=== PATIENT | female | born 1970 | race Caucasian/White ===

== ENCOUNTER 2016-06-11 10:06 | Outpatient (CLI) | payer BC | END 2016-06-11 10:07 | disposition home or self-care (01) | DX: Z12.31 Encounter for screening mammogram for malignant neoplasm of breast (principal) ==

== ENCOUNTER 2018-06-21 13:33 | Outpatient (CLI) | payer BC ==
--- NOTE | 2018-06-22 08:54 | Mammography Report ---
Reason: SCREENING MAMMO Procedure Date: 06/21/2018 Accession Number: [id number] / [id number] Procedure: MGN - Screening Mammo Dig Bilat CPT Code: FULL RESULT: EXAM: Screening Mammo Dig Bilat DATE: 06/21/2018 1:54 PM CLINICAL HISTORY: Screening encounter. No reported risk factors. History of benign left breast skin biopsy. TECHNIQUE: Bilateral CC, laterally exaggerated CC, MLO views were obtained. COMPARISON: 06/11/2016 and 09/29/2014. FINDINGS: The breasts demonstrate scattered fibroglandular densities bilaterally. No suspicious masses, clustered microcalcifications, or regions of architectural distortion are identified. IMPRESSION: Negative examination RECOMMENDATION: Routine annual screening unless otherwise clinically indicated. BIRADS CATEGORY 1: Negative STANDARD QUALIFYING STATEMENTS: 1. This examination was reviewed with the aid of Computer-Aided Detection (CAD). 2. A negative or benign imaging report should not preclude biopsy if clinically suspicious findings are present. 3. Dense breasts may obscure an underlying neoplasm. 4. This examination was reviewed without the aid of 3D breast imaging (tomosynthesis).
== END 2018-06-21 13:34 | disposition home or self-care (01) ==
LOC: DI.N 13:33
DX: Z12.31 Encounter for screening mammogram for malignant neoplasm of breast (principal)
CPT/HCPCS: 77067

== ENCOUNTER 2020-02-24 14:20 | Outpatient (CLI) | payer BC | END 2020-02-24 14:21 | disposition home or self-care (01) | LOC: COV 14:20 | PROVIDERS: ATTEND Family Medicine | DX: Z20.828 Contact with and (suspected) exposure to other viral communicable diseases (principal) ==

== ENCOUNTER 2020-03-16 08:28 | Outpatient (CLI) | payer BC ==
--- NOTE | 2020-03-19 16:11 | Mammography Report ---
BILATERAL DIGITAL SCREENING MAMMOGRAM 3D/2D: 03/16/2020 CLINICAL: Routine screening. Comparison is made to exams dated: 06/21/2018 mammogram, 06/11/2016 mammogram, 09/29/2014 mammogram, 07/31 mammogram, 02/19/2011 ultrasound, and 02/19/2011 mammogram - [facility]. Ther e are scattered fibroglandular elements in both breasts. There is possible architectural distortion in the right breast central to the nipple middle depth. No other significant masses, calcifications, or other findings are seen in either breast. IMPRESSION: INCOMPLETE: NEEDS ADDITIONAL IMAGING EVALUATION The possible architectural distortion in the right breast is indeterminate. Additional views with po ssible ultrasound are recommended. This exam was interpreted at Station ID: [id number]. NOTE: For mammograms, a report in lay terms will be sent to the patient. Approximately 15% of breast malignancies will not be visualized mammographically. In the management of a palpable breast mass, a negative mammogram must not discourage biopsy of a clinically suspicious lesion. Electronically Signed By: Nay st/yudith:03/16/2020 10:17:11 ACR BI-RADS Category 0: Incomplete 3340F PARENCHYMAL PATTERN: (A) - The breast(s) demonstrate(s) scattered fibroglandular densities. BI-RADS CATEGORY: (0) - 0 Mammo and [place] [id number] Immediate follow-up LATERALITY: (B)
== END 2020-03-16 08:29 | disposition home or self-care (01) ==
LOC: DI.N 08:28
PROVIDERS: ATTEND Physician Assistant Medical
DX: Z12.31 Encounter for screening mammogram for malignant neoplasm of breast (principal); R92.8 Other abnormal and inconclusive findings on diagnostic imaging of breast
CPT/HCPCS: 77063; 77067

== ENCOUNTER 2020-04-19 10:08 | Outpatient (CLI) | payer BC ==
--- NOTE | 2020-04-20 13:52 | Mammography Report ---
UNILATERAL RIGHT DIGITAL DIAGNOSTIC MAMMOGRAM 3D/2D: 04/19/2020 CLINICAL: Patient returns today to evaluate an architectural distortion in the right breast. Comparison is made to exams dated: 03/16/2020 mammogram, 06/21/2018 mammogram, and 06/11/2016 mammogra m - [facility]. There are scattered fibroglandular elements in right breast. There is irregular architectural distortion in the right breast at 9 o'clock middle depth. This is s een in additional views. No other significant masses or calcifications are seen in the breast. IMPRESSION: INCOMPLETE: NEEDS ADDITIONAL IMAGING EVALUATION The irregular architectural distortion in the right breast is indeterminate. An ultrasound is recomm ended. This exam was interpreted at Station ID: [id number]. NOTE: For mammograms, a report in lay terms will be sent to the patient. Approximately 15% of breast malignancies will not be visualized mammographically. In the management of a palpable breast mass, a negative mammogram must not discourage biopsy of a clinically suspicious lesion. SUMMARY: Targeted ultrasound is recommended for further evaluation and will be scheduled immediately following this exam. Electronically Signed By: Klever haley/yudith:04/19/2020 11:53:27 ACR BI-RADS Category 0: Incomplete 3340F PARENCHYMAL PATTERN: (A) - The breast(s) demonstrate(s) scattered fibroglandular densities. BI-RADS CATEGORY: (0) - 0 Ultrasound [id number] Immediate follow-up LATERALITY: (R)
--- NOTE | 2020-04-20 13:53 | Ultrasound Report ---
LIMITED ULTRASOUND OF RIGHT BREAST: 04/19/2020 CLINICAL: Patient returns today to evaluate a focal asymmetry in the RIGHT breast. Patient returns fo r additional imaging over a suspected mass in the right breast. Comparison is made to exams dated: 04/19/2020 mammogram, 03/16/2020 mammogram, 06/21/2018 mammogram, and 06/11/2016 mammogram - . Ultrasound of the right breast 9 o'clock region was performed. There is a 2.1 cm x 1.8 cm x 0.6 cm irregular mass with a spiculated margin in the right breast at 9 o'clock middle depth 5 cm from the nipple. This irregular mass is hyperechoic with posterior acousti c shadowing. This correlates with mammography findings. Color flow imaging demonstrates that there is no increase in vascularity. There also is a benign lymph node in the right breast at 9 o'clock posterior depth 7 cm from the nipp le. This lymph node displays fatty hilum. This correlates as an incidental finding. IMPRESSION: SUSPICIOUS OF MALIGNANCY The 2.1 cm x 1.8 cm x 0.6 cm irregular mass in the right breast at 9 o'clock middle depth is at a mod erate suspicion for malignancy. An ultrasound guided biopsy is recommended. The findings and recomm endations were discussed with the patient by the onsite radiologist, Dr. Barnett, at the time of the exam. After the biopsy, the clip placement will be compared with the area of architectural distortion on m ammography to ensure that the sonographic area corresponds with mammographic findings. If the clip lo cation is discordant, a stereotactic biopsy may be necessary. The lymph node in the right breast at 9 o'clock posterior depth is benign. This exam was interpreted at Station ID: [id number]. Electronically Signed By: Klever haley/yudith:04/19/2020 12:22:37 Ultrasound BI-RADS: 4b Moderate suspicion of malignancy BI-RADS CATEGORY: (4b) - Mod Susp None [id number] Immediate follow-up LATERALITY: ()
== END 2020-04-19 10:09 | disposition home or self-care (01) ==
LOC: DI 10:08
PROVIDERS: ATTEND Physician Assistant Medical
DX: N63.15 Unspecified lump in the right breast, overlapping quadrants (principal)
CPT/HCPCS: 76642

== ENCOUNTER 2020-04-25 08:00 | Outpatient (CLI) | payer BC ==
[2020-04-30] MEDS ORDERED: BUFFERED LIDOCAINE 10 ML SYRINGE ONE (10:35)
== END 2020-04-25 23:59 | disposition home or self-care (01) ==
LOC: LAB.WCP 08:00 → DI 04-30 12:15
PROVIDERS: ATTEND Physician Assistant Medical
DX: Z53.9 Procedure and treatment not carried out, unspecified reason (principal)

== ENCOUNTER 2020-04-30 13:17 | Outpatient (CLI) | payer BC ==
[2020-04-30] MEDS ORDERED: BUFFERED LIDOCAINE 10 ML SYRINGE IU ONE (14:24)
--- NOTE | 2020-05-07 09:41 | Ultrasound Report ---
ULTRASOUND GUIDED BIOPSY RIGHT BREAST USING VACUUM DEVICE WITH MARKING DEVICE INSERTED AND POST MAMMO GRAPHIC IMAGIN04/30/2020 CLINICAL: Right breast mass. PATIENT CONSENT: Risks (minor bleeding, infection, vasovagal reaction and repeat procedure), benefits and alternatives were explained to the patient and written informed consent was obtained. Correlation is made to exams dated: 04/19/2020 ultrasound, 04/19/2020 mammogram, 03/16/2020 mammogra m, 06/21/2018 mammogram, 06/11/2016 mammogram, and 09/29/2014 mammogram - [facility]. An ultrasound guided biopsy using real-time ultrasound was performed for the indistinct irregular sha ped mass located in the right breast at 9 o'clock. This was described on the previous mammography an d ultrasound reports. The skin was prepped in the usual manner. Topical and local anesthetic was ad ministered to the access site. A skin jennifer was made in the breast. The abnormality was approached f rom the lateral aspect. A biopsy needle was placed adjacent to the abnormality under ultrasound guid ance. Once the needle was documented to be in the correct location, a specimen was obtained using th e Mammotome biopsy system. A titanium clip was inserted into the biopsy cavity. A skin adhesive and a sterile dressing were applied to the access site. Post procedure mammographic imaging was obtaine d. The specimen was sent to the laboratory for pathological analysis. IMPRESSION: ULTRASOUND GUIDED BIOPSY BENIGN Ultrasound guided biopsy of the mass in the right breast at 9 o'clock. Pathologic findings of stroma l fibrosis are concordant with imaging. Recommend 6month f/u US and mammogram. This exam was interpreted at Station ID: [id number]. Elaine Linton [facility],acr/:05/04/2020 16:17:56 BI-RADS CATEGORY: () - Mammo and [place] [id number] 6 month follow-up LATERALITY: (R)
--- NOTE | 2020-05-07 09:41 | Mammography Report ---
UNILATERAL RIGHT DIGITAL DIAGNOSTIC MAMMOGRAM 3D/2D: 04/30/2020 CLINICAL: Post right breast ultrasound biopsy, clip placement imaging. Comparison is made to exam dated: 04/19/2020 ultrasound - [facility]. There are s cattered fibroglandular elements in right breast. There is a marker clip in the appropriate position in the right breast 9 o'clock. This marker clip p lacement is at the biopsy site. This correlates with ultrasound findings. IMPRESSION: POST PROCEDURE MAMMOGRAM FOR MARKER PLACEMENT There was a successful marker clip placement in the right breast 9 o'clock, at biopsy site. This exam was interpreted at Station ID: [id number]. NOTE: For mammograms, a report in lay terms will be sent to the patient. Approximately 15% of breast malignancies will not be visualized mammographically. In the management of a palpable breast mass, a negative mammogram must not discourage biopsy of a clinically suspicious lesion. Electronically Signed By: Elaine Goldstein M.D. [facility]/:05/04/2020 10:10:01 ACR BI-RADS Category Post-procedure mammogram for marker placement PARENCHYMAL PATTERN: (A) - The breast(s) demonstrate(s) scattered fibroglandular densities. BI-RADS CATEGORY: () - Unspecified - other recall n/a LATERALITY: (B)
== END 2020-04-30 13:18 | disposition home or self-care (01) ==
LOC: DI 13:17
PROVIDERS: ATTEND Physician Assistant Medical
DX: N60.31 Fibrosclerosis of right breast (principal)
CPT/HCPCS: 19083; 88305

== ENCOUNTER 2021-04-19 10:04 | Outpatient (CLI) | payer BC ==
--- NOTE | 2021-04-22 15:22 | Ultrasound Report ---
LIMITED ULTRASOUND OF RIGHT BREAST: 04/19/2021 CLINICAL: Short term follow up of the right breast. Comparison is made to exams dated: 04/30/2020 ultrasound biopsy, 04/19/2020 ultrasound, 04/19/2021 m ammogram, 04/19/2020 mammogram, 03/16/2020 mammogram, and 06/21/2018 mammogram - [facility]. Ultrasound of the right breast 9 o'clock region was performed. Gallagher scale images of the real-time ex amination were reviewed. There is a benign 1.3 cm x 1.4 cm x 0.5 cm irregular mass in the right breast at 9 o'clock middle dep th 5 cm from the nipple. This irregular mass is hyperechoic. This abnormality is decreased in size and correlates with mammography findings and the previous biopsy. There is an associated biopsy clip . IMPRESSION: BENIGN There is no sonographic evidence of malignancy. The 1.3 cm x 1.4 cm x 0.5 cm irregular mass in the right breast is benign. A 1 year screening mammogram is recommended. This exam was interpreted at Station ID: [id number]. Electronically Signed By: Klever haley/yudith:04/19/2021 11:52:06 Ultrasound BI-RADS: 2 Benign BI-RADS CATEGORY: (2) - 2 RECOMMENDATION: (ANNUAL) - Recommend routine annual screening mammography. [id number] 1 year screening LATERALITY: (B)
--- NOTE | 2021-04-22 15:22 | Mammography Report ---
BILATERAL DIGITAL DIAGNOSTIC MAMMOGRAM 3D/2D: 04/19/2021 CLINICAL: Patient returns for a 6 month follow up of the right breast, due for bilateral exam. Comparison is made to exams dated: 04/30/2020 ultrasound biopsy, 04/30/2020 mammogram, 04/19/2020 ul trasound, 04/19/2020 mammogram, 03/16/2020 mammogram, and 06/21/2018 mammogram - [facility]. There are scattered fibroglandular elements in both breasts. There is irregular architectural distortion in the right breast at 9 o'clock middle depth. This is d ecreased in size and correlates with the biopsy. There is a biopsy clip associated with the architec tural distortion. No other significant masses, calcifications, or other findings are seen in either breast. IMPRESSION: INCOMPLETE: NEEDS ADDITIONAL IMAGING EVALUATION The irregular architectural distortion in the right breast is indeterminate. An ultrasound is recomm ended. This exam was interpreted at Station ID: [id number]. NOTE: For mammograms, a report in lay terms will be sent to the patient. Approximately 15% of breast malignancies will not be visualized mammographically. In the management of a palpable breast mass, a negative mammogram must not discourage biopsy of a clinically suspicious lesion. Electronically Signed By: Klever haley/yudith:04/19/2021 11:48:53 ACR BI-RADS Category 0: Incomplete 3340F PARENCHYMAL PATTERN: (A) - The breast(s) demonstrate(s) scattered fibroglandular densities. BI-RADS CATEGORY: (0) - 0 Ultrasound [id number] Immediate follow-up LATERALITY: (R)
== END 2021-04-19 10:05 | disposition home or self-care (01) ==
LOC: DI 10:04
PROVIDERS: ATTEND Physician Assistant Medical
DX: R92.8 Other abnormal and inconclusive findings on diagnostic imaging of breast (principal)

== ENCOUNTER 2021-04-22 08:01 | Outpatient (CLI) | payer BC ==
--- NOTE | 2021-04-22 09:13 | XRAY Report ---
PROCEDURE: Ankle 2 View RT INDICATIONS: R ANKLE PX TECHNIQUE: 2 views of the ankle were acquired. COMPARISON: None FINDINGS: Bones: An avulsion fracture of the medial malleolar tip demonstrates approximately 2 mm displacement. The Ankle mortise is normally aligned. No suspicious bony lesions. Soft tissues: Soft tissue swelling over the medial malleolus. Achilles tendon appears normal. IMPRESSION: Avulsion fracture of the medial malleolar tip with 2 mm displacement. Reviewed by: Arsalan Linton on 04/22/2021 9:11 AM [facility] Approved by: Arsalan Linton on 04/22/2021 9:11 AM [facility] Station ID: [id number]
== END 2021-04-22 23:59 ==
LOC: DI.N 08:01
PROVIDERS: ATTEND Nurse Practitioner
DX: S82.51XA Displaced fracture of medial malleolus of right tibia, initial encounter for closed fracture (principal)

== ENCOUNTER 2021-05-21 13:00 | Outpatient (CLI) | payer BC ==
--- NOTE | 2021-05-21 15:40 | XRAY Report ---
PROCEDURE: Foot 3 View RT INDICATIONS: R ANKLE PX TECHNIQUE: AP weightbearing view of both feet. 2, weightbearing views of the right foot were acquire d. COMPARISON: None. FINDINGS: BONES: No acute, displaced fracture or dislocation. Right: Hallux valgus deformity with osteophytosis and joint space loss. Plantar calcaneal enthesophyte. Left: Hallux valgus deformity with osteophytosis and joint space loss. SOFT TISSUES: No focal abnormality. IMPRESSION: 1.Bilateral hallux valgus deformities as detailed above. Reviewed by: Tigre Roberts MD on 05/21/2021 3:38 PM PST Approved by: Tigre Roberts MD on 05/21/2021 3:38 PM PST Station ID: [id number]
== END 2021-05-21 23:59 ==
LOC: DI.N 13:00
PROVIDERS: ATTEND Physician Assistant
DX: M25.571 Pain in right ankle and joints of right foot (principal); M20.12 Hallux valgus (acquired), left foot; M20.11 Hallux valgus (acquired), right foot

== ENCOUNTER 2021-10-02 18:42 | Emergency (ER) | payer BC ==
[2021-10-02 18:55] VITALS: BP 150/95
[2021-10-02] MEDS ORDERED: LIDOCAINE 2% 10 ML MDV SUBQ ONE (19:15)
[2021-10-02] MEDS ORDERED: LIDOCAINE 1% 2 ML VIAL ONE (19:40)
--- NOTE | 2021-10-02 20:02 | ED Physician Documentation ---
PD HPI UPPER EXT INJURY - Stated complaint Stated Complaint: LT FING LAC/INJ - Chief complaint Chief Complaint: Laceration - History obtained from History obtained from: Patient - History of Present Illness Location: Left, Finger (middle) Where injury occurred: Home Timing - onset: How many hours ago (1) Timing - duration: Hours (1) Timing - details: Abrupt onset Pain level max: 2 Pain level now: 1 Improved by: Rest Worsened by: Moving, Palpating - Additonal information Additional information: Patient is right-handed, tetanus up-to-date. She excellently cut her PIP joint on the left middle finger, dorsal aspect with a pair of scissors while cutting hair. Review of Systems Constitutional: denies: Fever, Chills Skin: denies: Rash Musculoskeletal: denies: Neck pain, Back pain PD PAST MEDICAL HISTORY - Past Medical History Past Medical History: Yes Cardiovascular: None Respiratory: None Endocrine/Autoimmune: None GI: None : None HEENT: Chronic vision loss Psych: None Musculoskeletal: None Derm: Eczema - Past Surgical History Past Surgical History: No - Present Medications Home Medications: Ambulatory Orders Medication Instructions Recorded Confirmed No Known Home Medications 05/16/21 10/02/21 - Allergies Allergies/Adverse Reactions: Allergies Allergy/AdvReac Type Severity Reaction Status Date / Time No Known Drug Allergies Allergy Verified 10/02/21 18:55 - Social History Does the pt smoke?: No Smoking Status: Never smoker Does the pt drink ETOH?: No Does the pt have substance abuse?: No - Immunizations Immunizations are current?: Yes Immunizations: Other immun current PD ED PE NORMAL - Vitals Vital signs reviewed: Yes - General General: Alert and oriented X 3, No acute distress - HEENT HEENT: Moist mucous membranes - Derm Derm: Warm and dry - Neuro Neuro: Alert and oriented X 3 PD ED PE EXPANDED - Extremities MURIEL UE/Hands Visual: 1 - laceration (1.5cm, linear no tendon injury.) Results - Vitals Vitals: Vital Signs - 24 hr 10/02/21 18:47 Temperature 36.1 C L Heart Rate 90 Respiratory 16 Rate Blood Pressure 150/95 H O2 Saturation 98 Procedures - Laceration (location) L middle finger Length in cm: 1.5 Wound type: Linear Neurovascular status: Sensory intact, Motor intact, Vascular intact Tendon involvement: Tendon intact Anesthesia: Lidocaine 1% Wound preparation: Irrigated copiously NS, Wound explored, To the base Skin layer closure: Nylon, Interrupted, Size #-0 - enter number (4), Sutures - enter # (5) Other: Patient tolerated well, No complications, Neurovascular intact PD MEDICAL DECISION MAKING - ED course Complexity details: considered differential, d/w patient ED course: 51 year old female with finger laceration. Repaired. Tolerated well. Warnings of infection and instructions on wound care given at bedside. Also counseled on how to minimize scarring. Patient counseled regarding signs and symptoms for which I believe and urgent re-evaluation would be necessary. Patient with good u nderstanding of and agreement to plan and is comfortable going home at this time This document was made in part using voice recognition software. While efforts are made to proofread this document, sound alike and grammatical errors may occur. Departure - Departure Disposition: 01 Home, Self Care Clinical Impression: Finger laceration Qualifiers: Encounter type: initial encounter Finger: middle finger Damage to nail status: without damage Foreign body presence: without foreign body Laterality: left Qualified Code(s): S61.213A - Laceration without foreign body of left middle finger without damage to nail, initial encounter Condition: Good Instructions: ED Laceration Hand Follow-Up: Cheyanne Alvarenga PA-C [Primary Care Provider] - Comments: Follow-up with your doctor in about 10 days for suture removal. Keep the wound clean. Return if you notice redness, swelling or drainage from the wound. I would keep the foam splint in place for at least the next 24 hours. This will help to prevent excessive bending of the finger. Discharge Date/Time: 10/02/21 20:14
== END 2021-10-02 20:14 | disposition home or self-care (01) ==
LOC: ED 18:42
DX: S61.213A Laceration without foreign body of left middle finger without damage to nail, initial encounter (principal); W27.2XXA Contact with scissors, initial encounter; Y92.89 Other specified places as the place of occurrence of the external cause; Y99.9 Unspecified external cause status
CPT/HCPCS: 12001; 99282

== ENCOUNTER 2022-06-30 08:04 | Outpatient (CLI) | payer BC, OTHER ==
[2022-06-30 13:25] LABS: CALCIUM 9.2 mg/dL (8.5-10.3); CREATININE 0.7 mg/dL (0.4-1.0); POTASSIUM 4.1 mmol/L (3.5-5.0)
[2022-06-30 13:58] LABS: ESTIMATED AVERAGE GLUCOSE 120 mg/dL (70-100); HEMOGLOBIN A1c% 5.8 % (4.27-6.07)
[2022-07-01 08:25] LABS: BASOPHILS % (AUTO) 0.5 %; EOSINOPHILS # (AUTO) 0.3 10^3/uL (0.0-0.7); EOSINOPHILS % (AUTO) 3.3 %; HCT - HEMATOCRIT 46.1 % (37.0-47.0); HGB - HEMOGLOBIN 14.2 g/dL (12.0-16.0); LYMPHOCYTES # (AUTO) 2.2 10^3/uL (1.5-3.5); LYMPHOCYTES % (AUTO) 29.3 %; MEAN CORPUSCULAR HEMOGLOBIN 28.2 pg (27.0-31.0); MEAN CORPUSCULAR HGB CONC 30.8 g/dL (32.0-36.0); MEAN CORPUSCULAR VOLUME 91.5 fL (81.0-99.0); MEAN PLATELET VOLUME 10.5 fL (7.9-10.8); MONOCYTES # (AUTO) 0.5 10^3/uL (0.0-1.0); MONOCYTES % (AUTO) 7.1 %; NEUTROPHILS # (AUTO) 4.6 10^3/uL (1.5-6.6); NEUTROPHILS % (AUTO) 59.4 %; PLT - PLATELET COUNT 301 10^3/uL (130-450); RED BLOOD COUNT 5.04 10^6/uL (4.20-5.40); RED CELL DISTRIBUTION WIDTH 14.3 % (12.0-15.0); WHITE BLOOD COUNT 7.7 x10^3/uL (4.8-10.8)
[2022-07-01 08:44] LABS: CHOL/HDL RATIO 3.8 (<4.4); CHOLESTEROL 219 mg/dL; HDL CHOLESTEROL 57 mg/dL; LDL CHOLESTEROL,CALCULATED 143 mg/dL; LDL/HDL RATIO 2.5 (<4.4); TRIGLYCERIDES 94 mg/dL; VLDL CHOLESTEROL 19 mg/dL
[2022-07-01 08:54] LABS: THYROID STIMULATING HORMONE 3.12 uIU/mL (0.34-5.60)
== END 2022-06-30 08:05 | disposition home or self-care (01) ==
LOC: LAB.N 08:04
PROVIDERS: ATTEND Physician Assistant Medical
DX: Z00.00 Encounter for general adult medical examination without abnormal findings (principal); R73.9 Hyperglycemia, unspecified
CPT/HCPCS: 36415; 80048; 80061; 83036; 83721; 84443; 85025

== ENCOUNTER 2022-07-23 22:05 | Outpatient (CLI) | payer BC, OTHER ==
--- NOTE | 2022-07-24 16:37 | Ultrasound Report ---
PROCEDURE: Pelvic w/Transvaginal INDICATIONS: POST MENOPAUSAL MENORRHAGIA TECHNIQUE: Real-time scanning was performed of the pelvic organs, with image documentation. Additional endovagi nal scanning was necessary due to incomplete visualization of the adnexal and endometrial structures by transabdominal scanning. COMPARISON: None. FINDINGS: Uterus: Uterus is anteverted and normal in size at 8.1 x 4.6 x 4.9 cm. The myometrium is heterogene ous. The endometrium measures 5.3 mm in combined thickness. There is a midline posterior subserosal fibroid which measures 2.5 x 3.4 x 2.3 cm. Ovaries: The ovaries are not visualized. Other: No pathologic free abdominal or pelvic fluid. IMPRESSION: Abnormally thickened endometrium in a postmenopausal patient with a history of bleeding. Endometrial biopsy is recommended to exclude hypertrophy or neoplasm. Reviewed by: Nay Salgado MD on 07/24/2022 4:36 PM PST Approved by: Nay Salgado MD on 07/24/2022 4:36 PM PST Station ID: [id number]
== END 2022-07-23 22:06 | disposition home or self-care (01) ==
LOC: DI 22:05
PROVIDERS: ATTEND Physician Assistant Medical
DX: R93.89 Abnormal findings on diagnostic imaging of other specified body structures (principal); N95.0 Postmenopausal bleeding

== ENCOUNTER 2022-07-28 12:29 | Outpatient (CLI) | payer BC, OTHER ==
--- NOTE | 2022-07-29 10:51 | Mammography Report ---
BILATERAL DIGITAL SCREENING MAMMOGRAM 3D/2D: 07/28/2022 CLINICAL: Routine screening. Comparison is made to exams dated: 04/19/2021 ultrasound, 04/19/2021 mammogram, 04/30/2020 ultrasoun d biopsy, 04/30/2020 mammogram, 04/19/2020 ultrasound, and 04/19/2020 mammogram - [facility]. There are scattered areas of fibroglandular density in both breasts (category b / 25%-50% glandular t issue). There are benign masses in both breasts. No significant masses, calcifications, or other findings are seen in either breast. There has been no significant interval change. IMPRESSION: BENIGN There is no mammographic evidence of malignancy. A 1 year screening mammogram is recommended. Based on the Tyrer Cuzick model (a risk assessment model) the patients lifetime risk is 5.9% and her 10 year risk is 1.6%. According to the ACR, ACS, and NCCN guidelines, an annual breast MRI exam rosa maria g with mammogram is recommended if the patients lifetime risk is 20% or greater. This exam was interpreted at Station ID: [id number]. NOTE: For mammograms, a report in lay terms will be sent to the patient. Approximately 15% of breast malignancies will not be visualized mammographically. In the management of a palpable breast mass, a negative mammogram must not discourage biopsy of a clinically suspicious lesion. Electronically Signed By: Gabriele holman/yudith:07/28/2022 15:39:53 letter sent: No_Letter ACR BI-RADS Category 2: Benign Finding(s) 3342F PARENCHYMAL PATTERN: (A) - The breast(s) demonstrate(s) scattered fibroglandular densities. BI-RADS CATEGORY: (2) - 2 RECOMMENDATION: (ANNUAL) - Recommend routine annual screening mammography. [id number] 1 year screening LATERALITY: (B)
== END 2022-07-28 12:30 | disposition home or self-care (01) ==
LOC: DI.N 12:29
DX: Z12.31 Encounter for screening mammogram for malignant neoplasm of breast (principal)

== ENCOUNTER 2022-10-08 10:53 | Day surgery (SDC) | payer OTHER ==
[~2022-10-08 10:53] MED LIST: PROPOFOL 200 MG/20 ML VIAL IVP ONE
[2022-10-08 11:10] LABS: HCG UR QUAL NEGATIVE
[2022-10-08] MEDS ORDERED: PROPOFOL 500 MG/50 ML 500 MG/50 ML VIAL ONE (11:21)
[2022-10-08] MEDS ORDERED: LACTATED RINGERS 1,000 ML IV ONE (11:27)
--- NOTE | 2022-10-08 11:32 | ANESTHESIA ---
Pre-Anesthesia VS, & Labs - Diagnosis screening exam - Procedure colonoscopy Vital Signs: Temp Pulse Resp BP Pulse Ox O2 Flow Rate 36.0 C L 100 16 148/68 H 96 10/08/22 11:22 10/08/22 11:22 10/08/22 11:22 10/08/22 11:22 10/08/22 11:22 Height: 5 ft 5 in Weight (kg): 131 kg Body Mass Index: 48.0 BMI Classification: Morbidly Obese - NPO >8 hours - Is Patient ?: No Home Medications and Allergies Home Medications: Ambulatory Orders Aspirin/Acetaminophen/Caffeine [Migraine 250-250-65 mg Caplet] 1 cap PO PRN PRN 10/07/22 Aspirin/Acetaminophen/Caffeine [Migraine 250-250-65 mg Caplet] 1 cap PO PRN PRN 10/07/22 Allergies/Adverse Reactions: Allergies Allergy/AdvReac Type Severity Reaction Status Date / Time No Known Drug Allergies Allergy Verified 10/07/22 14:16 Anes History & Medical History - Anesthetic History Family history of Anesthesia Complications: Denies Family history of Malignant Hyperthermia: Denies - Medical History Cardiovascular: reports: None Pulmonary: reports: None Gastrointestinal: reports: None Urinary: reports: None Neuro: reports: Headaches Musculoskeletal: reports: None Endocrine/Autoimmune: reports: None Skin: reports: Eczema Smoking Status: Never smoker Psychosocial: reports: No issues indicated History of Cancer?: No Exam General: Alert, Oriented x3, Cooperative, No acute distress Dental: WNL Mouth Openin Fingerbreadth Neck Mobility: Normal Mallampati classification: II Thyromental Distance: 4-6 cm Mental/Cognitive Status: Alert/Oriented X3, Normal for patient Plan Anesthesia Type: General, Total IV Consent for Procedure(s) Verified and Reviewed: Yes Code Status: Attempt Resuscitation ASA classification: 3-Severe systemic disease Is this case an emergency?: No
[2022-10-08] MEDS ORDERED: LACTATED RINGERS 700 ML IV ONE (11:52)
[2022-10-08 12:02] VITALS: BP 103/61
--- NOTE | 2022-10-08 13:11 | ANESTHESIA POST OP EVALUATION ---
Anesthesia Post Eval - Post Anesthesia Eval Vitals: Last Vital Signs Temp 36.5 C 10/08/22 11:52 Pulse 85 10/08/22 12:01 Resp 18 10/08/22 12:01 BP 103/61 10/08/22 12:01 Pulse Ox 98 10/08/22 12:01 O2 Flow Rate CV Function Including HR & BP: Stable Pain Control: Satisfactory Nausea & Vomiting: Negative Mental Status: Baseline Respiratory Status: Airway Patent Hydration Status: Satisfactory Anesthesia Complications: None
== END 2022-10-08 10:54 | disposition home or self-care (01) ==
LOC: SDS 10:53
PROVIDERS: ATTEND Surgery
DX: Z12.11 Encounter for screening for malignant neoplasm of colon (principal); K64.1 Second degree hemorrhoids; E66.01 Morbid (severe) obesity due to excess calories; Z68.42 Body mass index [BMI] 45.0-49.9, adult
CPT/HCPCS: 45378; 81025; J7120

== ENCOUNTER 2022-11-25 12:33 | Outpatient (CLI) | payer OTHER ==
--- NOTE | 2022-11-30 06:53 | Ultrasound Report ---
PROCEDURE: Axilla INDICATIONS: History of left axillary palpable abnormality which has resolved TECHNIQUE: Real-time focused scanning was performed of the left axilla, with image documentation. COMPARISON: None. FINDINGS: In the area of concern in the left axilla where the patient has a palpable abnormality nor mal tissue is identified. IMPRESSION: No ultrasound abnormality in the area of palpable concern which has now resolved. Recomm end clinical follow-up and repeat ultrasound if any change or enlargement is detected. Reviewed by: Arsalan Linton on 11/30/2022 5:52 AM [facility] Approved by: Arsalan Linton on 11/30/2022 5:52 AM [facility] Station ID: [id number]
== END 2022-11-25 12:34 | disposition home or self-care (01) ==
LOC: DI 12:33
PROVIDERS: ATTEND Physician Assistant Medical
DX: R22.2 Localized swelling, mass and lump, trunk (principal)